=== PATIENT | male | born 1985 | race Caucasian/White ===

== ENCOUNTER 2017-06-05 11:34 | Emergency (ER) | payer OTHER ==
[~2017-06-05] VITALS: Ht 172.7 cm; Wt 84.1 kg
[2017-06-05] MEDS ORDERED: TYLE325T5 PO (11:43)
[2017-06-05] MEDS ORDERED: PERCOCET 5MG/325MG TAB PO ONE (12:45)
--- NOTE | 2017-06-05 13:37 | REP ---
RIGHT SHOULDER SERIES: Three views. HISTORY: Injury. FINDINGS: The right glenohumeral and acromioclavicular joints are normally aligned. There is no fracture or subluxation. There are two calcific deposits in the region of the rotator cuff in the periarticular soft tissues on the right consistent with chronic calcific tendonitis or bursitis. The largest of these measures a centimeter in diameter. IMPRESSION: Calcific deposits in the periarticular soft tissues consistent with calcific tendonitis or bursitis. No traumatic abnormality noted. Signed by Rajiv Olivera MD 06/05/2017 03:53 P
[2017-06-05] MEDS ORDERED: NORCOTAB PO (13:42)
[2017-06-05] MEDS ORDERED: MOBI4TAB PO (13:42)
[2017-06-05 14:07] VITALS: BP 129/79
== END 2017-06-05 14:23 | disposition home or self-care (01) ==
LOC: M ED 11:34
DX: M75.31 Calcific tendinitis of right shoulder (principal)

== ENCOUNTER 2017-06-07 17:01 | Emergency (ER) | payer OTHER ==
[~2017-06-07] VITALS: Ht 172.7 cm; Wt 84.1 kg
[~2017-06-07 17:01] MED LIST: MOBI4TAB PO; NORCOTAB PO; TYLE325T5 PO
[2017-06-07] MEDS ORDERED: methylPREDNISolone INJ 125 MG/2 ML VIAL (J2930) IM ONE (19:45)
[2017-06-07] MEDS ORDERED: PRED20TA PO (20:06)
[2017-06-07 20:11] VITALS: BP 158/81
== END 2017-06-07 20:31 | disposition home or self-care (01) ==
LOC: M ED 17:01
DX: M75.31 Calcific tendinitis of right shoulder (principal)
CPT/HCPCS: 96372; 99282; J2930